=== PATIENT | female | born 1935 | race Caucasian/White ===

== ENCOUNTER → 2016-12-01 | Outpatient (CLI) | payer MEDICARE, BC ==
[2016-04-24 17:00] VITALS: BP 147/89
[~2016-12-01] MED LIST: ALLO100T PO; ASPI-482 PO; BENA40TA2 PO; GLYB2.5T2 PO; LORA0.5T PO; LOSA25TA4 PO; MAGN100T3 PO; METO50TA2 PO; MULT1TAB52 PO; OMEG1CAP6 PO; OMEP20TA63 PO; PRAM0.5T5 PO; ROPI1TAB2 PO; SIMV10TA3 PO; TRAM50TA PO; vitamin b PO; vitamin d PO
--- NOTE | 2016-12-01 16:37 | RAD ---
Chest, 2 views, 12/01/2016: History: Shortness of breath Comparison is made to a study from 04/20/2016. There is mild chronic elevation of the right hemidiaphragm. The heart size and pulmonary vascularity are normal. There is mild tortuosity of the thoracic aorta. No pulmonary infiltrates are seen. There is only minimal basilar scarring. There is no evidence of pleural fluid. Moderate spurring is present in the spine. IMPRESSION: No acute cardiopulmonary abnormality is detected.
== END | disposition home or self-care (01) ==
LOC: RAD 13:11
PROVIDERS: ATTEND Internal Medicine Pulmonary Disease
DX: R06.02 Shortness of breath (principal); I77.1 Stricture of artery
CPT/HCPCS: 71020

== ENCOUNTER → 2016-12-06 | Outpatient (CLI) | payer MEDICARE, BC ==
[2016-04-24 17:00] VITALS: BP 147/89
--- NOTE | 2016-12-06 09:40 | RAD ---
Indication difficulty breathing. The diaphragms were evaluated. A single fluoroscopic spot image was obtained. Fluoroscopy time associated with the examination was 36 seconds There is paradoxical (abnormal) movement of the right hemidiaphragm with sniffing. The left hemidiaphragm moves normally. IMPRESSION: Paradoxical movement of the right hemidiaphragm
== END | disposition home or self-care (01) ==
LOC: RAD 08:54
PROVIDERS: ATTEND Internal Medicine Pulmonary Disease
DX: R06.00 Dyspnea, unspecified (principal); R06.02 Shortness of breath
CPT/HCPCS: 36415; 76000; 85379

== ENCOUNTER → 2017-04-05 | Outpatient (CLI) | payer MEDICARE, BC ==
[2016-04-24 17:00] VITALS: BP 147/89
[~2017-04-05] MED LIST changes: -METO50TA2 PO; +METO50TA6 PO
--- NOTE | 2017-04-05 12:44 | [facility] ---
MRI Lumbar Spine without contrast History: Chronic low back pain, increasing pain with activities, increased incontinence Technique: Multiplanar, multi sequential noncontrast MR imaging was performed of the lumbar spine. Contrast: None Comparison: None available at this time Findings: There is some motion degradation. Other than large superior L3 and L4 Schmorl's nodes and small focus of L5, lumbar vertebral body stature is adequate. There is mild grade 1 anterior spondylolisthesis at L4-5, negligible anterior spondylolisthesis L3-4, minimal posterior subluxation L2 relative to L3, and negligible posterior subluxation L5 relative S1. There is mild degenerative disc disease L2-3 and L5-S1, mild disc desiccation at other levels. Mild L2-3 and anterior L5-S1 endplate edema is likely reactive/degenerative in etiology. There are likely hemangiomas of S1, L3, and L1. Conus terminates at L1-2. There are small T2 hyperintense lesion of the visualized left kidney on the order of 1.1 cm is statistically most likely a cyst. 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 L1-L2: Spinal canal and neural foramina are adequate. There is mild facet degenerative change. L2-L3: There is mild buckling of the ligamentum flavum and [id number] facet degenerative change. There is negligible disc osteophyte complex greater in the left lateral recess. The spinal canal is overall adequate. There is mild posterior narrowing of the left neural foramen by facet, right neural foramen adequate. L3-L4: There is moderate facet hypertrophic change and bmdg-[id number]-ttrsmyig buckling of the ligamentum flavum. Spinal canal and neural foramina are adequate. L4-L5: There is moderate to severe facet degenerative change and mild buckling of the ligamentum flavum. There is mild narrowing of the far left lateral recess. Neural foramina are adequate. L5-S1: There is moderate right and mild left facet hypertrophic change. Spinal canal and left neural foramen are adequate. There is [id number]-[id number] narrowing of the right neural foramen primarily from posteriorly by facet. Impression: 1. There is no significant lumbar spinal stenosis, mild left lateral recess stenosis L4-5. 2. There is multilevel mild abnormal alignment as stated, multilevel lumbar facet degenerative change. 3. There is fyat-ke-qrojsalr narrowing of the right L5-S1 neural foramen, mild narrowing on the left at L2-3. 4. There is multilevel mild lumbar degenerative disc disease greatest at L2-3. Electronically signed by: Joey Terrazas MD (04/05/2017 12:41 PM) [id number]
== END | disposition home or self-care (01) ==
LOC: KCIC MRI 11:33
PROVIDERS: ATTEND Nurse Practitioner Adult Health
DX: M51.36 Other intervertebral disc degeneration, lumbar region (principal)
CPT/HCPCS: 72148

== ENCOUNTER → 2021-04-22 | Outpatient (CLI) | payer MEDICARE, BC ==
[2016-04-24 17:00] VITALS: BP 147/89
[~2021-04-22] MED LIST changes: -BENA40TA2 PO; +BENA40TA74 PO; -LOSA25TA4 PO; +LOSA25TA54 PO; +MULT-445 PO; -MULT1TAB52 PO; -ROPI1TAB2 PO; +ROPI1TAB4 PO; +SIMV10TA15 PO; -SIMV10TA3 PO
--- NOTE | 2021-04-22 09:36 | CARD ---
MR#: [id number] Date of Study: 04/22/2021 Ordering Physician: ARIAS HUNG, Referring Physician: ARIAS HUNG, Tech: APPROVED REPORT PROCEDURE: Successful implantation of [employer] Biomonitor III loop recorder INDICATIONS: Recurrent syncope of uncertain etiology PROCEDURE DETAILS: An informed consent was obtained from patient. Patient was brought to the procedure suite and her le ft chest and shoulder were prepped and draped in the usual fashion. 20 mL of 2% lidocaine was infilt rated into the skin and subcutaneous tissues for local anesthesia. An incision was made in the left third intercostal space 1 inch from midsternal line and using the introducer and the prior provided w ith the kit, a [employer] biomonitor III loop recorder, serial #[id number] was placed in the subcutaneou s tissue. The incision was closed in one layer. Hemostasis was secured. Patient tolerated the proce dure well. There were no immediate complications. CONCLUSION: Successful implantation of [employer] Biomonitor III loop recorder for recurrent syncope of uncertain etiology. Signed by : Arias Hung, Electronically Approved : 04/22/2021 09:36:21
== END | disposition home or self-care (01) ==
LOC: LINQ 08:52
PROVIDERS: ATTEND Internal Medicine Cardiovascular Disease
DX: R55 Syncope and collapse (principal); I25.10 Atherosclerotic heart disease of native coronary artery without angina pectoris; I10 Essential (primary) hypertension; E78.00 Pure hypercholesterolemia, unspecified; E11.9 Type 2 diabetes mellitus without complications; G47.30 Sleep apnea, unspecified; E66.9 Obesity, unspecified; K21.9 Gastro-esophageal reflux disease without esophagitis; F41.9 Anxiety disorder, unspecified; F32.9 Major depressive disorder, single episode, unspecified; F17.210 Nicotine dependence, cigarettes, uncomplicated; Z79.82 Long term (current) use of aspirin; Z79.899 Other long term (current) drug therapy; Z90.710 Acquired absence of both cervix and uterus; Z98.890 Other specified postprocedural states; Z91.041 Radiographic dye allergy status; Z88.5 Allergy status to narcotic agent; Z88.8 Allergy status to other drugs, medicaments and biological substances
CPT/HCPCS: 33285; C1764